=== PATIENT | female | born 1965 | race Caucasian/White ===

== ENCOUNTER 2024-08-13 08:34 | Day surgery (SDC) | payer BC ==
[2024-08-11 15:29] VITALS: BMI 28.0
[2024-08-13] MEDS ORDERED: CIPROFLOXACIN 0.3% EYE DROPS 5 ML BOTTLE ONE (08:45)
[2024-08-13] MEDS ORDERED: PHENYLEPHRINE 2.5% OPTHALMIC DROP 2ML BOTTLE ONE (08:45)
[2024-08-13] MEDS ORDERED: TROPICAMIDE 1% OPHTH SOLN 15 ML BOTTLE ONE (08:45)
[2024-08-13] MEDS ORDERED: CYCLOPENTOLATE 2% OPHTH SOLN 2 ML BOTTLE ONE (08:45)
[2024-08-13] MEDS: CYCLOPENTOLATE 2% OPHTH SOLN 2 ML BOTTLE OD ONE ×3 (08:55→09:05)
[2024-08-13] MEDS: CIPROFLOXACIN 0.3% EYE DROPS 5 ML BOTTLE OD ONE ×3 (08:55→09:05)
[2024-08-13] MEDS: PHENYLEPHRINE 2.5% OPHTH SOLN 15 ML BOTTLE OD ONE ×3 (08:55→09:05)
[2024-08-13] MEDS: TROPICAMIDE 1% OPHTH SOLN 15 ML BOTTLE OD ONE ×3 (08:55→09:05)
[2024-08-13] MEDS ORDERED: MIDAZOLAM HCL 2 MG/2 ML SINGLE DOSE VIAL ONE (09:47)
[2024-08-13] MEDS ORDERED: TETRACAINE 0.5% OPHTH SOLN 2 ML BOTTLE ONE (10:05)
[2024-08-13] MEDS ORDERED: NEO/POLYMYX B SULF/DEXAMETH OPHTHALMIC 5ML BOTTLE ONE (10:05)
[2024-08-13] MEDS ORDERED: CARBACHOL 0.01% INTRA-OCULAR 1.5 ML VIAL ONE (10:05)
[2024-08-13] MEDS ORDERED: BSS (NA/CA/MG/K) BALANCED SALT SOLUTION OPHTH SOLN 15 ML BOTTLE ONE (10:05)
[2024-08-13] MEDS ORDERED: LIDOCAINE 1% P/F 10 MG/ML VIAL ONE (10:05)
[2024-08-13 11:15] VITALS: RESP 18; TEMP 98
[2024-08-13 11:31] VITALS: BP 121/69; PULSE 69
== END 2024-08-13 11:35 | disposition home or self-care (01) ==
LOC: FASU 08:34
PROVIDERS: ATTEND Ophthalmology
PROC: 08RJ3JZ Replacement of Right Lens with Synthetic Substitute, Percutaneous Approach (ICD-10-PCS; principal; 2024-08-13 10:37)
DX: H26.8 Other specified cataract (principal)
CPT/HCPCS: 66984; V2632